=== PATIENT | female | born 1990 | race Caucasian/White ===

== ENCOUNTER 2017-09-07 01:53 | Inpatient (IN) | payer OTHER ==
[2017-09-07] MEDS ORDERED: Ondansetron 4 MG/2 ML SDV IVPUSH PRN (06:52)
[2017-09-07] MEDS ORDERED: Sodium Chloride 0.9% 10 ML Syringe FLUSH PRN (06:52)
[2017-09-07] MEDS ORDERED: Nalbuphine 20 MG/ML 1 ML Syringe IVPUSH PRN (06:52)
[2017-09-07] MEDS ORDERED: Lactated Ringers 1,000 ML IV SCH (07:00)
--- NOTE | 2017-09-07 07:15 | PCM.LDHP ---
L&D History of Present Illness - General Date of Service: 09/07/17 Admit Problem/Dx: Patient Status Order with Admit Dx/Problem 09/07/17 06:52 Patient Status [ADT] Routine Admission Diagnosis/Problem Admission Diagnosis/Problem Normal 09/07/17 07:00 40-5/7 week intrauterine , history of previous , desire for a trial of labor after section to achieve a vaginal after section Source of Information: Patient History Limitations: Reports: No Limitations - History of Present Illness Introduction:: History of present illness: Myrna is a 27-year-old 4 para 2011 white female who is in for elective artificial rupture membranes/Pitocin induction of labor at 40-5/7 weeks gestational age with an VARINDER of 09/01/2017 as determined by certain last menstrual period which started on 11/25/2016 and was supported by at least 6 ultrasounds since that time. She presently is at 2 cm dilation, 80% effacement, -3 station, very soft, mid position and is desiring an attempt at artificial rupture membranes induction. Possibility of using Pitocin augmentation of labor, its risks, benefits and patient wishes to proceed. Consent is signed for both a section and for a trial of labor. Her contractions have been taken including having labs available. Also continuous monitoring of heart tones in labor, alerting surgery and anesthesia that patient is attempting a in labor and delivery and IV access. FACILITIES FLIGHT CHECK PILOT history 4 para 2011. VARINDER 09/01/2017 by LMP 11/25/2016. Patient h certain last menstrual period cycles, every 28 days. Menarche age 11. No control time conception. Previous 2 deliveries included: 1. vaginal delivery on 10/14/2009 at 39 weeks gestational age after 15 hours of labor. 8 lbs. 6 oz. female delivering in [place].Child's name is Any 2. Primary section done 03/15/2012 at 39 weeks gestational age8 lbs. 11 oz.male infantcesarean section done for suspected failure to progresschild 's name is Eddi Patient's first visit was early in the at 12 weeks gestation on 02/17/2017. She had regular visits and made good fundal height growth during the course of her . Weight gain was from 140 pounds up to 170.2 pounds for a 30.2 pound increase. Her vital signs are stable throughout the course. Patient had declined genetic testing early in the . Her [place] depression screening score on 04/21/2017 was 09/02. Group B strep screen is negative. She had a normal one-hour glucose tolerance test. She is okay with epidural in L&D. She plans to breast-feed. Previous was done for suspected large babybaby weighed 8 lbs. 11 oz. Patient desires to and this is been discussed on at least 3 occasions during the care. Patient has had her MMR immunization. Laboratory testing and shows blood which is B+, antibody screen is negative. First hemoglobin is 12.3, platelets are 262,000. Rubella titer is equivocal. RPR is nonreactive. Urine culture was negative. Hepatitis B surface antigen and HIV assays were both negative. Chlamydia and gonorrhea assays both negative. Second trimester laboratory testing showed a hemoglobin which is mildly decreased at 11.8. Patient start on her iron supplementation at that time. Platelets 234,000. One-hour glucose tolerance test 119. Group B strep screen was negative. Allergies: none Medications: 1. Ferrous sulfate 325 mg per day 2. vitamins daily Past medical history: 1. Normal spontaneous vaginal delivery 1 Past surgical history: 1. section 1 Family history Kenrick mother is alive and well. Mother has hypertension. 2 sisters are alive and well. Maternal grandmother is alive and well but has had a hip replacement. Paternal grandfather is alive and well. Paternal grandmother alive and well. Paternal grandfather , cause unknown. No anesthesia, bleeding, blood clotting or problems noted in the family. Social history: Patient is . is Otto. They live in [place]. 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 She does not use any significant loss of alcohol, drugs or tobacco. Review of systems: In general patient has no concerns. Baby has been active. It is been a relatively unremarkable . Skin: Negative Cardiovascular: No chest pain or exercise intolerance Respiratory: No shortness of breath or infectious symptoms Breasts: Changes associated with . Patient plans to breast-feed GI: Negative : Increased fundal height associated with normal . Musculoskeletal: Occasional trace of edema and right lateral lower extremities Neurological: Negative Physical exam: On last evaluation 09/03/2017 patient's weight was 170.2 with pregravid weight of 140 pounds. Height is 5 feet 2. Her blood pressure last evaluations 110/66 end heart rate was 128. In general patient is well-developed, well-nourished, pleasant feels stated age in no acute distress. She is alert and oriented 3 and appears to be good historian. Skin is warm dry without lesions. HEENT, neck and back within normal notes no Lungs are clear with good breath sounds in all lung cerda. Cardiovascular exam shows regular rate and rhythm without murmurs. Breasts exam is deferred having been done at first visit and found to be normal. Abdomen is protuberant with a fundal height of 40 cm. Baby in vertex presentation. Cervix at last visit was 2 cm, 80% effaced, -3 station, very soft, mid position. Extremities showed trace edema in bilateral lower extremities Neurological exam grossly within normal limits. H&P Review of Systems - Review of Systems: Review Of Systems: See Below L&D Exam - Exam Exam: See Below Problem List Initiated/Reviewed/Updated: Yes Orders Last 24hrs: Active Orders 24 hr Category Date Time Status Patient Status [ADT] Routine ADT 09/07/17 06:52 Ordered Activity as Tolerated [RC] PFP Care 09/07/17 06:52 Ordered Communication Order [RC] ASDIRECTED Care 09/07/17 06:52 Ordered Communication Order [RC] ASDIRECTED Care 09/07/17 06:52 Ordered Heart Tones [RC] ASDIRECTED Care 09/07/17 06:53 Ordered Notify Provider [RC] PFP Care 09/07/17 06:52 Ordered Notify Provider [RC] PRN Care 09/07/17 06:52 Ordered Peripheral IV Care [RC] . DIRECTED Care 09/07/17 06:53 Ordered Pump Management, Intrathecal [RC] ASDIRECTED Care 09/07/17 06:53 Ordered Verify Patient Consent Obtain [RC] ASDIRECTED Care 09/07/17 06:52 Ordered Vital Signs [RC] PER UNIT ROUTINE Care 09/07/17 06:52 Ordered Regular Diet [DIET] Diet 09/07/17 Breakfast Ordered CBC W/O DIFF,HEMOGRAM [HEME] Stat Lab 09/07/17 08:00 Ordered TYPE AND SCREEN [BBK] Stat Lab 09/07/17 08:00 Ordered Lactated Ringers [Ringers, Lactated] 1,000 ml Med 09/07/17 07:00 Ordered IV ASDIRECTED Lidocaine 1% [Xylocaine 1%] Med 09/07/17 06:52 Once 10 ml INJECT ONETIME ONE Nalbuphine [Nubain] Med 09/07/17 06:52 Ordered 10 mg IVPUSH Q2H PRN Ondansetron [Zofran] Med 09/07/17 06:52 Ordered 4 mg IVPUSH Q4H PRN Sodium Chloride 0.9% [Saline Flush] Med 09/07/17 06:52 Ordered 10 ml FLUSH ASDIRECTED PRN Electronic Heart Tones Ext w TOCO [WOMSER] Oth 09/07/17 06:52 Ordered Routine Electronic Heart Tones Internal [WOMSER] Per Unit Ot 09/07/17 06:52 Ordered Routine Peripheral IV Insertion Adult [OM.PC] Routine Ot 09/07/17 06:52 Ordered Resuscitation Status Routine Resus Stat 09/07/17 06:52 Ordered Assessment/Plan Comment:: 1. 40-5/7 week intrauterine , admission for elective AROM induction of labor with possible Pitocin augmentation. Procedure, risks, benefits, alternatives of care including a repeat discussed with patient. She appears understand and wishes to proceed 2. Patient has had a previous vaginal delivery 3. Group B strep screen negative 4. Patient plans to breast-feed 5. Rubella titer is equivocalpatient is a candidate for MMR prior to discharge Plan: 1. Consent for trial of labor after section to attempt a vaginal after section will be signed. 2. IV access upon admission 3. labs to be obtained 4. Continuous electronic heart rate monitoring in labor and 5. Surgery and anesthesia department will be informed of a patient attempting presents in labor and delivery 6. MMR prior to discharge from the hospital.
[2017-09-07] MEDS ORDERED: Lidocaine 1% 50 ML MDV INJECT ONE (09:30)
[2017-09-07] MEDS ORDERED: Oxytocin/Lactated Ringers 10 UNIT/1,000 ML BAG IV SCH (09:45)
[2017-09-07] MEDS ORDERED: fentaNYL 100 MCG/2 ML SDV EPIDUR PRN (18:06)
--- NOTE | 2017-09-07 18:06 | PCM.PREANE ---
Preanesthetic Assessment - Procedure Proposed Procedure: RIGO - Anesthesia/Transfusion/Family Hx Anesthesia History: Prior Anesthesia Without Reaction Family History of Anesthesia Reaction: No Transfusion History: No Prior Transfusion(s) - Review of Systems General: No Symptoms Pulmonary: No Symptoms Cardiovascular: No Symptoms Gastrointestinal: No Symptoms Neurological: No Symptoms Other: Reports: None - Physical Assessment NPO Status Date: 09/07/17 NPO Status Time: 10:00 Respiratory Rate: 15 Vital Signs: Last Vital Signs Temp 36.4 C 09/07/17 07:39 Pulse 81 09/07/17 07:39 Resp 15 09/07/17 07:39 BP 101/71 09/07/17 07:39 Pulse Ox Height: 1.57 m Weight: 78.471 kg ASA Class: 2 Mental Status: Alert & Oriented x3 Airway Class: Mallampati = 1 Dentition: Reports: Normal Dentition Thyro-Mental Finger Breadths: 3 Mouth Opening Finger Breadths: 3 ROM/Head Extension: Full Lungs: Clear to Auscultation, Normal Respiratory Effort Cardiovascular: Regular Rate, Regular Rhythm - Lab Values: Laboratory Last Values WBC 7.77 K/mm3 (3.98-10.04) 09/07/17 07:35 RBC 4.25 M/mm3 (3.98-5.22) 09/07/17 07:35 Hgb 12.8 gm/L (11.2-15.7) 09/07/17 07:35 Hct 37.8 % (34.1-44.9) 09/07/17 07:35 MCV 88.9 fl (79.4-94.8) 09/07/17 07:35 MCH 30.1 pg (25.6-32.2) 09/07/17 07:35 MCHC 33.9 g/dl (32.2-35.5) 09/07/17 07:35 RDW Std Deviation 46.7 fL (36.4-46.3) H 09/07/17 07:35 Plt Count 169 K/mm3 (182-369) L 09/07/17 07:35 MPV 9.8 fl (9.4-12.3) 09/07/17 07:35 RPR Non-reactive (NONREACTIVE) 09/07/17 07:39 Blood Type B POSITIVE 09/07/17 07:35 Gel Antibody Screen Negative 09/07/17 07:35 - Allergies Allergies/Adverse Reactions: Allergies Allergy/AdvReac Type Severity Reaction Status Date / Time No Known Allergies Allergy Verified 09/07/17 09:23 - Blood Blood Available: No Product(s) Available: None - Anesthesia Plan Pre-Op Medication Ordered: None - Acknowledgements Anesthesia Type Planned: Epidural Pt an Appropriate Candidate for the Planned Anesthesia: Yes Alternatives and Risks of Anesthesia Discussed w Pt/Guardian: Yes Pt/Guardian Understands and Agrees with Anesthesia Plan: Yes PreAnesthesia Questionnaire - Past Health History Medical/Surgical History: Denies Medical/Surgical History 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 , Hematologic History: Reports: Anemia - SUBSTANCE USE Smoking Status *Q: Never Smoker Tobacco Use Within Last Twelve Months: No Second Hand Smoke Exposure: No Recreational Drug Use History: No - HOME MEDS Home Medications: Home Meds Ferrous Sulfate 325 mg PO DAILY 09/07/17 [History] PNV95/Ferrous Fumarate/FA [ Tablet] 1 each PO DAILY 09/07/17 [History] - CURRENT (IN HOUSE) MEDS Current Meds: Current Medications Diphtheria/Tetanus/Acell Pertussis (Adacel) 0.5 ml IM .ONCE ONE Stop: 09/08/17 10:01 Lactated Ringer's (Ringers, Lactated) 1,000 mls @ 100 mls/hr IV ASDIRECTED TED Last Admin: 09/07/17 10:03 Dose: 100 mls/hr Oxytocin/Lactated Ringer's (Pitocin In Lr 10 Units/1,000 Ml) 10 unit in 1,000 mls @ 12 mls/hr IV TITRATE TED; Protocol Last Titration: 09/07/17 13:15 Dose: 6 munits/min, 36 mls/hr Measles/Mumps/Rubella Vaccine Live (M-M-R Ii Vaccine) 0.5 ml SUBCUT .ONCE ONE Stop: 09/08/17 10:01 Nalbuphine HCl (Nubain) 10 mg IVPUSH Q2H PRN PRN Reason: Pain (moderate 4-6) Ondansetron HCl (Zofran) 4 mg IVPUSH Q4H PRN PRN Reason: Nausea/Vomiting Sodium Chloride (Saline Flush) 10 ml FLUSH ASDIRECTED PRN PRN Reason: Keep Vein Open Discontinued Medications Lidocaine HCl (Xylocaine 1%) 10 ml INJECT ONETIME ONE Stop: 09/07/17 09:31
[2017-09-07] MEDS ORDERED: Bupivacaine/fentaNYL/NS 100 ML Bag EPIDUR SCH (18:15)
[2017-09-07] MEDS ORDERED: Bupivacaine 0.25% 10 ML SDV ONE (22:00)
[2017-09-07] MEDS ORDERED: fentaNYL 100 MCG/2 ML SDV ONE (22:00)
--- NOTE | 2017-09-08 02:15 | PCM.SN ---
- Free Text/Narrative Note: Delivery note: Myrna is a 27 year old 4 para 3013 white female was admitted on the a.m. of 09/07/2017 at 40-5/7 weeks gestational age for elective artificial rupture membranes induction. She underwent rupture membranes with resultant clear fluid. Pitocin was added as an augmentation per protocol. Patient progressed slowly but steadily and became complete at approximately 0120 hrs. on 09/08/2017. She pushed for a short period of time and at 0153 hrs. on 09/08/2017 at 40-6/7 weeks' patient delivered a viable, olea, male with a weight of 4140 g (9 pounds, 2 ounces), a length of 21.5 inches, in a left occiput anterior position. Perineum remained intact and no suturing was necessary. A small superficial abrasion was noted but was not bleeding and there was no anatomic distortion. The baby was placed on mom's abdomen. The cord was allowed to pulsate until it stopped. Cord was then clamped 2 by myself and was cut by the baby's father. The baby's nose and mouth were bulb suctioned. After delivery the IV Pitocin was started to increase uterine tone and decreased likelihood of bleeding. The placenta delivered in a [place] presentation, appeared intact and complete and was discarded per patient desire. The umbilical cord had 3 vessels. Estimated blood loss was 100 mL. Patient plans to breast-feed. Condition: Good
[2017-09-08] MEDS ORDERED: Docusate Sodium 100 MG Cap PO PRN (02:28)
[2017-09-08] MEDS ORDERED: Lanolin 100% Cream 7 GM Tube TOP PRN (02:28)
[2017-09-08] MEDS ORDERED: Witch Hazel Medicated Pads 100/Jar TOP PRN (02:28)
[2017-09-08] MEDS ORDERED: Ibuprofen 600 MG Tab PO PRN (02:28)
[2017-09-08] MEDS ORDERED: Acetaminophen 325 MG Tab PO PRN (02:28)
[2017-09-08] MEDS ORDERED: Benzocaine/Menthol 20%-0.5% Spray 56 GM Canister TOP PRN (02:28)
--- NOTE | 2017-09-08 05:47 | PCM.SN ---
- Free Text/Narrative Note: note: Patient is doing well in the period. Minimal lochia, voiding well, ambulated without problems. Nursing without concerns. Patient is afebrile, vital signs are stable Abdomen is flat, soft, uterus is below the umbilicus and is firm and nontender. Legs are nontender. Assessment: recovery going well. Hemoglobin today. Plan: Routine care. Patient be discharged home within the next 24- 48 hours.
[2017-09-08] MEDS: Prenatal Multivitamin with Calcium/Folic Acid/Iron Tab PO SCH (09:00)
--- NOTE | 2017-09-08 09:05 | PCM48HPAN ---
Post Anesthesia Note - EVALUATION WITHIN 48HRS OF ANESTHETIC Vital Signs in Normal Range: Yes Patient Participated in Evaluation: Yes Respiratory Function Stable: Yes Airway Patent: Yes Cardiovascular Function Stable: Yes Hydration Status Stable: Yes Pain Control Satisfactory: Yes Nausea and Vomiting Control Satisfactory: Yes Mental Status Recovered: Yes
[2017-09-08] MEDS ORDERED: Measles, Mumps & Rubella Vaccine 0.5 ML SDV SUBCUT ONE (10:00)
[2017-09-08] MEDS ORDERED: Diphtheria,Pertussis(Acell),Tetanus Vaccine 0.5 ML SDV IM ONE (10:00)
--- NOTE | 2017-09-09 05:51 | PCM.DCSUM1 ---
Discharge Summary - Hospital Course Free Text/Narrative:: Myrna is a 27 year old 4 para 3013 white female was admitted on the a.m. of 09/07/2017 at 40-5/7 weeks gestational age for elective artificial rupture membranes induction. She underwent rupture membranes with resultant clear fluid. Pitocin was added as an augmentation per protocol. Patient progressed slowly but steadily and became complete at approximately 0120 hrs. on 09/08/2017. She pushed for a short period of time and at 0153 hrs. on 09/08/2017 at 40-6/7 weeks' patient delivered a viable, olea, male infant with a weight of 4140 g (9 pounds, 2 ounces), a length of 21.5 inches, in a left occiput anterior position. Perineum remained intact and no suturing was necessary. A small superficial abrasion was noted but was not bleeding and there was no anatomic distortion. The baby was placed on mom's abdomen. The cord was allowed to pulsate until it stopped. Cord was then clamped 2 by myself and was cut by the baby's father. The baby's nose and mouth were bulb suctioned. After delivery the IV Pitocin was started to increase uterine tone and decreased likelihood of bleeding. The placenta delivered in a Mol[place] presentation, appeared intact and complete and was discarded per patient desire. The umbilical cord had 3 vessels. Estimated blood loss was 100 mL. Patient plans to breast-feed. patient is doing well. She is voiding without concerns, ambulating well and has minimal lochia. She is nursing without problems. She is desiring to be discharged. - Discharge Data Discharge Date: 09/09/17 Discharge Disposition: Home, Self-Care 01 Condition: Good - Patient Instructions Diet: Regular Diet as Tolerated (Nursing diet was increased calories and calcium as recommended) Activity: As Tolerated (No intercourse or tampons until bleeding resolves) Driving: May Drive Today Showering/Bathing: May Shower (May take a bath) Notify Provider of: Fever, Increased Pain, Swelling and Redness, Nausea and/or Vomiting - Discharge Plan Home Medications: Home Meds Ferrous Sulfate 325 mg PO DAILY 09/07/17 [History] PNV95/Ferrous Fumarate/FA [ Tablet] 1 each PO DAILY 09/07/17 [History] Acetaminophen [Tylenol] 650 mg PO Q4H PRN tablet 09/09/17 [Rx] Ibuprofen [Motrin] 600 mg PO Q4H PRN tablet 09/09/17 [Rx] Referrals: Wilver Howard MD [Primary Care Provider] - (Return to clinicDr. [facility]2-4 weeks) - Discharge Summary/Plan Comment DC Time >30 min.: No Discharge Summary/Plan Comment: Discharge instructions: 1. Discharge home 2. Diet, activity and follow-up discussed with patient. Recommend nursing diet with increased calories and calcium. 3. Precautions given concern increased pain, bleeding, temperature, signs/ symptoms of DVT/PE. 4. Medications per home medication was printed, discussed with and given to the patient. 5. Return to clinic-Dr. Howard[facility] in 2-4 weeks. Diagnosis: Term -delivered Condition: Good - Patient Data Vitals - Most Recent: Last Vital Signs Temp 36.4 C 09/08/17 15:04 Pulse 56 L 09/08/17 15:04 Resp 15 09/08/17 15:04 BP 94/49 L 09/08/17 21:28 Pulse Ox 100 09/08/17 01:00 Weight - Most Recent: 78.471 kg I&O - Last 24 hours: Intake & Output 09/08/17 09/08/17 09/09/17 14:59 22:59 06:59 Intake Total 120 Balance 120 Med Orders - Current: Current Medications Acetaminophen (Tylenol) 650 mg PO Q4H PRN PRN Reason: mild pain or fever Benzocaine/Menthol (Dermoplast Pain Relief Delta) 0 gm TOP ASDIRECTED PRN PRN Reason: Perineal Comfort Measure Last Admin: 09/08/17 07:37 Dose: 1 spray Docusate Sodium (Colace) 100 mg PO BID PRN PRN Reason: Constipation Emollient Ointment (Lansinoh Hpa) 0 gm TOP ASDIRECTED PRN PRN Reason: Sore Nipples Ibuprofen (Motrin) 600 mg PO Q4H PRN PRN Reason: Mild pain or fever Last Admin: 09/08/17 07:42 Dose: 600 mg Prenat Multivit/[place]/Iron/Folic Ac ( Plus Iron) 1 each PO DAILY TED Last Admin: 09/08/17 09:00 Dose: Not Given Witch Stacey (Tucks) 1 pad TOP ASDIRECTED PRN PRN Reason: Hemorrhoid pain Last Admin: 09/08/17 07:37 Dose: 1 pad Discontinued Medications Bupivacaine HCl (Sensorcaine-Mpf 0.25%) 10 ml .ROUTE .STK-MED ONE Stop: 09/07/17 22:01 Diphtheria/Tetanus/Acell Pertussis (Adacel) 0.5 ml IM .ONCE ONE Stop: 09/08/17 10:01 Fentanyl (Sublimaze) 100 mcg EPIDUR Q3H PRN PRN Reason: Pain Last Admin: 09/07/17 22:25 Dose: 100 mcg Fentanyl (Sublimaze) 100 mcg .ROUTE .STK-MED ONE Stop: 09/07/17 22:01 Fentanyl/Bupivacaine HCl (Fentanyl/Bupivacaine/Ns 2 Mcg-0.125% 100 Ml) 100 ml EPIDUR ASDIRECTED TED Last Admin: 09/07/17 22:25 Dose: 100 ml Lactated Ringer's (Ringers, Lactated) 1,000 mls @ 100 mls/hr IV ASDIRECTED TED Last Admin: 09/07/17 10:03 Dose: 100 mls/hr Oxytocin/Lactated Ringer's (Pitocin In Lr 10 Units/1,000 Ml) 10 unit in 1,000 mls @ 12 mls/hr IV TITRATE TED; Protocol Last Titration: 09/07/17 13:15 Dose: 6 munits/min, 36 mls/hr Lidocaine HCl (Xylocaine 1%) 10 ml INJECT ONETIME ONE Stop: 09/07/17 09:31 Last Admin: 09/08/17 09:36 Dose: Not Given Measles/Mumps/Rubella Vaccine Live (M-M-R Ii Vaccine) 0.5 ml SUBCUT .ONCE ONE Stop: 09/08/17 10:01 Last Admin: 09/08/17 14:59 Dose: 0.5 ml Nalbuphine HCl (Nubain) 10 mg IVPUSH Q2H PRN PRN Reason: Pain (moderate 4-6) Ondansetron HCl (Zofran) 4 mg IVPUSH Q4H PRN PRN Reason: Nausea/Vomiting Sodium Chloride (Saline Flush) 10 ml FLUSH ASDIRECTED PRN PRN Reason: Keep Vein Open
[2017-09-09] MEDS: Prenatal Multivitamin with Calcium/Folic Acid/Iron Tab PO SCH (10:50)
== END 2017-09-09 10:17 | disposition home or self-care (01) | DRG 775 ==
LOC: JD.OB 01:53 → OBSVTOIN 09-08 01:53 → JD.OB 09-08 01:54
PROVIDERS: ADMIT Obstetrics & Gynecology; ATTEND Obstetrics & Gynecology
PROC: 10907ZC Drainage of Amniotic Fluid, Therapeutic from Products of Conception, Via Natural or Artificial Opening (ICD-10-PCS; 2017-09-07)
PROC: 00HU33Z Insertion of Infusion Device into Spinal Canal, Percutaneous Approach (ICD-10-PCS; 2017-09-07)
PROC: 3E0R3BZ Introduction of Anesthetic Agent into Spinal Canal, Percutaneous Approach (ICD-10-PCS; 2017-09-07)
PROC: 10E0XZZ Delivery of Products of Conception, External Approach (ICD-10-PCS; principal; 2017-09-08)
PROC: 3E0234Z Introduction of Serum, Toxoid and Vaccine into Muscle, Percutaneous Approach (ICD-10-PCS; 2017-09-08)
DX: O48.0 Post-term pregnancy (principal); Z3A.40 40 weeks gestation of pregnancy; O34.211 Maternal care for low transverse scar from previous cesarean delivery; O34.219 Maternal care for unspecified type scar from previous cesarean delivery; Z37.0 Single live birth; Z23 Encounter for immunization
CPT/HCPCS: 36415; 59025; 59409; 85027; 86592; 86850; 86900; 86901; 90707; A9270-GY; J2590; J3010; J7120